=== PATIENT | female | born 1945 | race Caucasian/White ===

== ENCOUNTER → 2018-01-11 | Outpatient (CLI) | payer MEDICARE ==
[~2018-01-11] MED LIST: SERT50TA PO; TRAM50TA2 PO
== END | disposition home or self-care (01) ==
LOC: CFH 12:55
DX: Z12.31 Encounter for screening mammogram for malignant neoplasm of breast (principal); M81.0 Age-related osteoporosis without current pathological fracture
CPT/HCPCS: 77080; 77067

== ENCOUNTER 2018-12-14 09:12 | Outpatient (CLI) | payer MEDICARE | END 2018-12-14 23:59 | disposition home or self-care (01) | LOC: PETCFH 09:12 | PROVIDERS: ATTEND Internal Medicine Endocrinology, Diabetes & Metabolism | DX: E21.0 Primary hyperparathyroidism (principal); M81.0 Age-related osteoporosis without current pathological fracture | CPT/HCPCS: 78070; A9500 ==